=== PATIENT | female | born 1995 | race African-American/Black ===

== ENCOUNTER 2018-01-03 23:22 | Emergency (ER) | payer OTHER ==
[~2018-01-03] VITALS: Ht 160 cm; Wt 109.1 kg
[2018-01-03 23:26] VITALS: BP 144/84
== END 2018-01-04 01:52 | disposition left against medical advice (07) ==
LOC: EMS 23:23
DX: J02.9 Acute pharyngitis, unspecified (principal); F17.210 Nicotine dependence, cigarettes, uncomplicated; Z53.21 Procedure and treatment not carried out due to patient leaving prior to being seen by health care provider
CPT/HCPCS: 87430

== ENCOUNTER 2022-08-30 22:10 | Emergency (ER) | payer MEDICAID ==
[~2022-08-30] VITALS: Ht 167.6 cm; Wt 109.1 kg
[2022-08-30] MEDS ORDERED: CEPH-558 PO (23:22)
[2022-08-30 23:26] VITALS: BP 131/95
== END 2022-08-30 23:49 | disposition home or self-care (01) ==
LOC: EMS 22:15
DX: L03.314 Cellulitis of groin (principal); F17.210 Nicotine dependence, cigarettes, uncomplicated
CPT/HCPCS: 82962; 99283